=== PATIENT | female | born 1990 | race African-American/Black ===

== ENCOUNTER 2016-09-17 19:32 | Emergency (ER) | payer OTHER ==
[~2016-09-17] VITALS: Ht 160 cm; Wt 66.2 kg
[~2016-09-17 19:32] MED LIST: ALBUTEROL SULF8.5 GM IH; BACTRIM,SEPT1 TABLET PO; CALCIUM + VITA1 EACH PO; CIPRO500 MG PO; DOXYCYCLINE HY100 M1 PO; FLAGYL500 MG PO; LEVAQUIN500 MG PO; MACROBID100 MG PO; MOTRIN IB200 MG PO; NAPROSYN500 MG PO; NITROFURANTOIN100 MG PO; NORCO 7.5/321 TABLET PO; PHENERGAN1.25 MG/ML PO; PHENERGAN25 MG PR; POTASSIUM CHLO20 ME2 PO; PREDNISONE20 MG PO; PROMETHAZINE HC25 M1 PO; TESSALON PERLE100 MG PO; TRAMADOL HCL50 MG; ULTRACET1 TABLET PO; ZITHROMAX250 MG PO; ZOFRAN ODT4 MG PO; ZOFRAN4 MG PO
[2016-09-17 19:54] LABS: ADD MIUA? YES; BILIRUBIN NEGATIVE; BLOOD NEGATIVE; COLOR AMBER ((YELLOW)); GLUCOSE (STRIP) NEGATIVE; KETONES 80; LEUKOCYTES LARGE; NITRITE NEGATIVE; PROTEIN (STRIP) 100; SPECIFIC GRAVITY 1.024 (1.000-1.030)
[2016-09-17 20:08] LABS: BACTERIA RARE /HPF; CALCIUM OXALATE CRYSTALS 1+ /HPF; EPITHELIAL CELLS 3+ /HPF; MUCUS 4+ /LPF; RED BLOOD CELLS 0-5 /HPF (0-5); UCUL ADDED? NO; UNCLASSIFIED CASTS 0-5 /LPF; WHITE BLOOD CELLS 40-50 /HPF (0-5)
[2016-09-17 20:20] LABS: CHLORIDE 104 mEq/L (99-109); POTASSIUM 4.3 mEq/L (3.7-5.4); SODIUM 140 mEq/L (136-147)
[2016-09-17 20:24] LABS: TOTAL BILIRUBIN 0.3 mg/dL (0.0-1.0)
[2016-09-17 20:33] LABS: QUANTITATIVE HCG < 4.0 MIU/ML
[2016-09-17 21:34] LABS: SAMPLE HEMOLYSIS CHECK 0; SAMPLE ICTERIC CHECK 0; SAMPLE LIPEMIA CHECK 0
[2016-09-17 21:40] LABS: ALKALINE PHOSPHATASE 71 IU/L (3-129); GFR ESTIMATE (CALCULATED) > 59 mL/min/; GLUCOSE 98 mg/dL (70-99); LIPASE 9 U/L (1.0-51.0); UREA NITROGEN (BUN) 7 mg/dL (9-23)
[2016-09-17 23:10] LABS: HEMATOCRIT 43.7 % (36.0-46.0); MCH 30.4 PG (29.0-34.0); MCHC 33.2 G/DL (30.0-36.0); MCV 91.6 FL (83-99); MEAN PLAT.VOLUME 11.6 uM^3 (9.5-12.4); PLATELET COUNT 402 K/uL (156-360); RBC DIS.WIDTH-CV 11.6 % (11.8-14.6); RBC DIS.WIDTH-SD 39.3 % (39-53); RED BLOOD COUNT 4.77 M/uL (3.80-5.20); WHITE BLOOD COUNT 13.5 K/uL (4.1-10.2)
[2016-09-18] MEDS ORDERED: PERCOCET 5/31 TABLET PO (00:09)
[2016-09-18] MEDS ORDERED: FLAGYL500 MG PO (00:09)
[2016-09-18] MEDS ORDERED: CIPRO500 MG PO (00:09)
[2016-09-18 00:34] VITALS: BP 132/83
== END 2016-09-18 00:35 | disposition home or self-care (01) ==
LOC: EME 19:32
DX: K57.32 Diverticulitis of large intestine without perforation or abscess without bleeding (principal); F31.9 Bipolar disorder, unspecified; F17.200 Nicotine dependence, unspecified, uncomplicated
CPT/HCPCS: 74177; 80053; 81003; 83690; 84702; 85027; 99281; 99285; J1885; J2405; J3010; J7030

== ENCOUNTER 2016-10-09 00:43 | Emergency (ER) | payer OTHER ==
[~2016-10-09] VITALS: Ht 162.6 cm; Wt 65.3 kg
[~2016-10-09 00:43] MED LIST changes: +PERCOCET 5/31 TABLET PO
[2016-10-09 01:56] LABS: ADD MIUA? YES; BILIRUBIN NEGATIVE; BLOOD MODERATE; COLOR YELLOW ((YELLOW)); GLUCOSE (STRIP) NEGATIVE; KETONES 5; LEUKOCYTES MODERATE; NITRITE NEGATIVE; PROTEIN (STRIP) NEGATIVE; SPECIFIC GRAVITY 1.008 (1.000-1.030); UROBILINOGEN 0.2 MG/DL (0.2-1.0)
[2016-10-09 02:05] LABS: HEMATOCRIT 43.8 % (36.0-46.0); MCH 30.1 PG (29.0-34.0); MCHC 32.9 G/DL (30.0-36.0); MCV 91.4 FL (83-99); MEAN PLAT.VOLUME 10.9 uM^3 (9.5-12.4); PLATELET COUNT 366 K/uL (156-360); RBC DIS.WIDTH-CV 11.9 % (11.8-14.6); RBC DIS.WIDTH-SD 39.8 % (39-53); RED BLOOD COUNT 4.79 M/uL (3.80-5.20); WHITE BLOOD COUNT 10.9 K/uL (4.1-10.2)
[2016-10-09 02:06] LABS: BACTERIA RARE /HPF; EPITHELIAL CELLS 1+ /HPF; MUCUS TRACE /LPF; RED BLOOD CELLS 0-5 /HPF (0-5); UCUL ADDED? YES
[2016-10-09 02:15] LABS: CHLORIDE 102 mEq/L (99-109); POTASSIUM 3.4 mEq/L (3.7-5.4); SODIUM 139 mEq/L (136-147)
[2016-10-09 02:17] LABS: GLUCOSE 94 mg/dL (70-99)
[2016-10-09 02:18] LABS: ANION GAP 10 MEQ/L (2-14)
[2016-10-09 02:19] LABS: TOTAL BILIRUBIN 0.4 mg/dL (0.0-1.0)
[2016-10-09 02:20] LABS: ALKALINE PHOSPHATASE 73 IU/L (3-129)
[2016-10-09 02:21] LABS: GFR ESTIMATE (CALCULATED) > 59 mL/min/
[2016-10-09 02:22] LABS: UREA NITROGEN (BUN) 6 mg/dL (9-23)
[2016-10-09 02:24] LABS: LIPASE 13 U/L (1.0-51.0)
[2016-10-09 02:32] LABS: QUANTITATIVE HCG < 4.0 MIU/ML
[2016-10-09] MEDS ORDERED: AUGMENTIN875 MG PO (06:11)
[2016-10-09] MEDS ORDERED: ZOFRAN4 MG PO (06:11)
[2016-10-09 06:44] VITALS: BP 108/72
== END 2016-10-09 06:44 | disposition home or self-care (01) ==
LOC: EME 00:43
DX: R10.9 Unspecified abdominal pain (principal); R11.2 Nausea with vomiting, unspecified; R19.7 Diarrhea, unspecified; F17.200 Nicotine dependence, unspecified, uncomplicated
CPT/HCPCS: 80053; 81003; 83690; 84702; 85027; 87086; J2405; J3010; J7030

== ENCOUNTER 2017-04-05 11:41 | Emergency (ER) | payer OTHER ==
[~2017-04-05] VITALS: Ht 162.6 cm; Wt 73.1 kg
[~2017-04-05 11:41] MED LIST changes: +AUGMENTIN875 MG PO
[2017-04-05 12:34] LABS: HEMATOCRIT 43.4 % (36.0-46.0); HEMOGLOBIN 14.8 G/DL (11.9-15.5); MCH 30.8 PG (29.0-34.0); MCHC 34.1 G/DL (30.0-36.0); MCV 90.2 FL (83-99); PLATELET COUNT 321 K/uL (156-360); RBC DIS.WIDTH-CV 12.3 % (11.8-14.6); RBC DIS.WIDTH-SD 40.5 % (39-53); RED BLOOD COUNT 4.81 M/uL (3.80-5.20); WHITE BLOOD COUNT 11.9 K/uL (4.1-10.2)
[2017-04-05 12:44] LABS: CHLORIDE 103 mEq/L (99-109); POTASSIUM 3.5 mEq/L (3.7-5.4); SODIUM 138 mEq/L (136-147)
[2017-04-05 12:46] LABS: GLUCOSE 87 mg/dL (70-99)
[2017-04-05 12:50] LABS: CREATININE 0.8 mg/dL (0.6-1.3); GFR ESTIMATE (CALCULATED) > 59 mL/min/; UREA NITROGEN (BUN) 7 mg/dL (9-23)
[2017-04-05 12:56] LABS: TROP-I INTERPRETATION NEGATIVE; TROPONIN-I < 0.01 ng/mL (0.0-0.30)
[2017-04-05 14:35] LABS: D-DIMER ELISA < 150.00 ng/mLDDU (<230)
[2017-04-05 16:34] LABS: TROP-I INTERPRETATION NEGATIVE; TROPONIN-I 0.03 ng/mL (0.0-0.30)
[2017-04-05 17:21] LABS: ALBUMIN 4.3 g/dL (3.2-4.8)
[2017-04-05 17:24] LABS: TOTAL PROTEIN 7.5 g/dL (6.4-8.3)
[2017-04-05 17:26] LABS: TOTAL BILIRUBIN 0.5 mg/dL (0.0-1.0)
[2017-04-05 17:27] LABS: ALKALINE PHOSPHATASE 76 IU/L (3-129)
[2017-04-05 17:29] LABS: AST (GOT) 15 IU/L (2-34); DIRECT BILIRUBIN 0.3 mg/dL (0.0-0.3)
[2017-04-05 17:30] LABS: ALT (GPT) 15 IU/L (3-49)
[2017-04-05 17:41] LABS: APPEARANCE SL.HAZY ((CLEAR)); BILIRUBIN NEGATIVE; BLOOD NEGATIVE; COLOR YELLOW ((YELLOW)); GLUCOSE (STRIP) NEGATIVE; KETONES NEGATIVE; LEUKOCYTES TRACE; NITRITE NEGATIVE; PROTEIN (STRIP) NEGATIVE; SPECIFIC GRAVITY 1.006 (1.000-1.030); UROBILINOGEN 0.2 MG/DL (0.2-1.0)
[2017-04-05 17:46] LABS: BACTERIA NONE SEEN /HPF; EPITHELIAL CELLS 2+ /HPF; MUCUS TRACE /LPF; RED BLOOD CELLS 0-5 /HPF (0-5); UCUL ADDED? NO; WHITE BLOOD CELLS 0-5 /HPF (0-5)
[2017-04-05 18:42] VITALS: BP 118/63
== END 2017-04-05 18:42 | disposition home or self-care (01) ==
LOC: EME 11:41
PROVIDERS: Physician Assistant Medical
DX: B34.9 Viral infection, unspecified (principal); F32.9 Major depressive disorder, single episode, unspecified; F41.9 Anxiety disorder, unspecified; Z88.5 Allergy status to narcotic agent; Z88.1 Allergy status to other antibiotic agents; F17.200 Nicotine dependence, unspecified, uncomplicated
CPT/HCPCS: 71046; 80048; 80076; 81003; 84484; 85027; 85379; 87502; 93005; 94640; 99281; 99284

== ENCOUNTER 2017-05-29 02:42 | Emergency (ER) | payer OTHER ==
[~2017-05-29] VITALS: Ht 162.6 cm; Wt 79.8 kg
[2017-05-29 04:09] LABS: APPEARANCE CLEAR ((CLEAR)); BILIRUBIN NEGATIVE; BLOOD NEGATIVE; COLOR YELLOW ((YELLOW)); GLUCOSE (STRIP) NEGATIVE; KETONES NEGATIVE; LEUKOCYTES NEGATIVE; NITRITE NEGATIVE; PROTEIN (STRIP) NEGATIVE; SPECIFIC GRAVITY 1.014 (1.000-1.030); UCUL ADDED? NO; UROBILINOGEN 0.2 MG/DL (0.2-1.0)
[2017-05-29] MEDS ORDERED: DOUBLE ANTIBI28.4 GM TP (04:16)
[2017-05-29 04:33] VITALS: BP 128/82
== END 2017-05-29 04:34 | disposition home or self-care (01) ==
LOC: EME 02:42
PROVIDERS: Emergency Medicine
DX: L73.9 Follicular disorder, unspecified (principal); N76.0 Acute vaginitis; F32.9 Major depressive disorder, single episode, unspecified; F41.9 Anxiety disorder, unspecified; F17.200 Nicotine dependence, unspecified, uncomplicated; Z88.5 Allergy status to narcotic agent; Z88.1 Allergy status to other antibiotic agents
CPT/HCPCS: 81003; 87254; 99281; 99284

== ENCOUNTER 2017-06-05 23:41 | Emergency (ER) | payer OTHER ==
[~2017-06-05] VITALS: Ht 162.6 cm; Wt 80.0 kg
[~2017-06-05 23:41] MED LIST changes: +DOUBLE ANTIBI28.4 GM TP
[2017-06-06 01:13] VITALS: BP 122/84
== END 2017-06-06 01:15 | disposition left against medical advice (07) ==
LOC: EME 23:41
DX: N89.8 Other specified noninflammatory disorders of vagina (principal); Z86.19 Personal history of other infectious and parasitic diseases; F31.9 Bipolar disorder, unspecified; F41.9 Anxiety disorder, unspecified; F32.9 Major depressive disorder, single episode, unspecified; F17.200 Nicotine dependence, unspecified, uncomplicated; Z88.5 Allergy status to narcotic agent; Z88.1 Allergy status to other antibiotic agents; Z88.8 Allergy status to other drugs, medicaments and biological substances
CPT/HCPCS: 87210; 99281; 99284

== ENCOUNTER 2017-06-30 10:11 | Inpatient (IN) | payer OTHER ==
[~2017-06-30] VITALS: Ht 162.6 cm; Wt 86.3 kg
[2017-06-30 10:39] LABS: BASOPHIL (%) 0.4 % (0-1); BASOPHIL COUNT 0.1 K/uL (0-0.1); EOSINOPHIL (%) 0.8 % (0-5); EOSINOPHIL COUNT 0.2 K/uL (0-0.3); HEMATOCRIT 41.1 % (36.0-46.0); HEMOGLOBIN 13.7 G/DL (11.9-15.5); IMMATURE GRANULOCYTE (%) 1.6 % (0.0-0.7); LYMPHOCYTE (%) 15.1 % (15-42); LYMPHOCYTE COUNT 4.2 K/uL (1.0-2.8); MCH 31.4 PG (29.0-34.0); MCHC 33.3 G/DL (30.0-36.0); MCV 94.3 FL (83-99); MONOCYTE (%) 5.9 % (3-12); MONOCYTE COUNT 1.7 K/uL (0-0.8); NEUTROPHIL (%) 76.2 % (45-76); NEUTROPHIL COUNT 21.4 K/uL (1.8-6.4); PLATELET COUNT 381 K/uL (156-360); RBC DIS.WIDTH-CV 11.9 % (11.8-14.6); RBC DIS.WIDTH-SD 41.7 % (39-53); RED BLOOD COUNT 4.36 M/uL (3.80-5.20); WHITE BLOOD COUNT 28.1 K/uL (4.1-10.2)
[2017-06-30 10:48] LABS: AMYLASE 34 IU/L (1-118); CHLORIDE 107 mEq/L (99-109); POTASSIUM 3.9 mEq/L (3.7-5.4); SODIUM 140 mEq/L (136-147)
[2017-06-30 10:49] LABS: GLUCOSE 204 mg/dL (70-99)
[2017-06-30 10:53] LABS: CREATININE 0.9 mg/dL (0.6-1.3); GFR ESTIMATE (CALCULATED) > 59 mL/min/; SERUM ETHYL ALCOHOL < 10 mg/dL
[2017-06-30 10:54] LABS: UREA NITROGEN (BUN) 9 mg/dL (9-23)
[2017-06-30 10:56] LABS: LIPASE 12 U/L (1.0-51.0)
[2017-06-30 11:02] LABS: QUANTITATIVE HCG < 4.0 MIU/ML
[2017-06-30 11:27] LABS: APPEARANCE CLEAR ((CLEAR)); BILIRUBIN NEGATIVE; BLOOD SMALL; COLOR YELLOW ((YELLOW)); GLUCOSE (STRIP) NEGATIVE; KETONES NEGATIVE; LEUKOCYTES NEGATIVE; NITRITE NEGATIVE; PROTEIN (STRIP) NEGATIVE; SPECIFIC GRAVITY 1.012 (1.000-1.030); UROBILINOGEN 0.2 MG/DL (0.2-1.0)
[2017-06-30 11:37] LABS: BACTERIA RARE /HPF; CALCIUM OXALATE CRYSTALS 1+ /HPF; EPITHELIAL CELLS RARE /HPF; MUCUS 1+ /LPF; RED BLOOD CELLS 0-5 /HPF (0-5); UCUL ADDED? NO; WHITE BLOOD CELLS 0-5 /HPF (0-5)
[2017-06-30 11:38] LABS: AMPHETAMINE NEGATIVE (500 ng/mL); BARBITURATES NEGATIVE (200 ng/mL); BENZODIAZEPINES NEGATIVE (150 ng/mL); BUPRENORPHINE NEGATIVE (10 ng/mL); COCAINE PRESUMPTIVE POSITIVE (150 ng/mL); METHADONE NEGATIVE (200 ng/mL); METHAMPHETAMINE NEGATIVE (500 ng/mL); OPIATES (MORPHINE) PRESUMPTIVE POSITIVE (100 ng/mL); OXYCODONE NEGATIVE (100 ng/mL); PHENCYCLIDINE PRESUMPTIVE POSITIVE (25 ng/mL); PROPOXYPHENE NEGATIVE (300 ng/mL); THC CANNABINOIDS PRESUMPTIVE POSITIVE (50 ng/mL); TRICYCLIC ANTIDEPRESSANTS NEGATIVE (300 ng/mL)
[2017-06-30 16:57] LABS: HEMATOCRIT 40.6 % (36.0-46.0); HEMOGLOBIN 13.3 G/DL (11.9-15.5); MCV 94.9 FL (83-99)
[2017-06-30 17:28] LABS: CHLORIDE 110 MEQ/L (99-109); CREATININE 0.7 MG/DL (0.6-1.3); GFR ESTIMATE (CALCULATED) > 59 mL/min/; GLUCOSE 156 mg/dL (70-99); PHOSPHORUS 3.1 mg/dL (2.5-4.9); POTASSIUM 4.1 MEQ/L (3.7-5.4); SODIUM 137 MEQ/L (136-147); UREA NITROGEN (BUN) 8 mg/dL (9-23)
[2017-06-30 21:00] VITALS: BP 127/78
[2017-06-30 22:00] VITALS: BP 127/79
[2017-06-30 23:00] VITALS: BP 124/76
[2017-07-01] VITALS (17 sets, daily range): BP systolic 106–159; BP diastolic 69–102
[2017-07-01 06:01] LABS: CHLORIDE 106 MEQ/L (99-109); CREATININE 0.6 MG/DL (0.6-1.3); GFR ESTIMATE (CALCULATED) > 59 mL/min/; GLUCOSE 126 mg/dL (70-99); PHOSPHORUS 2.8 mg/dL (2.5-4.9); POTASSIUM 3.6 MEQ/L (3.7-5.4); SODIUM 138 MEQ/L (136-147); UREA NITROGEN (BUN) 7 mg/dL (9-23)
[2017-07-01 06:49] LABS: HEMATOCRIT 36.9 % (36.0-46.0); HEMOGLOBIN 12.6 G/DL (11.9-15.5); MCHC 34.1 G/DL (30.0-36.0); RBC DIS.WIDTH-CV 13.1 % (11.8-14.6); RBC DIS.WIDTH-SD 43.2 % (39-53); RED BLOOD COUNT 4.07 M/uL (3.80-5.20); WHITE BLOOD COUNT 20.7 K/uL (4.1-10.2)
[2017-07-01 06:51] LABS: MCV 90.7 FL (83-99); PLATELET COUNT 245 K/uL (156-360)
[2017-07-02] VITALS (7 sets, daily range): BP systolic 128–159; BP diastolic 68–89
[2017-07-02 05:56] LABS: HEMATOCRIT 32.7 % (36.0-46.0); HEMOGLOBIN 11.1 G/DL (11.9-15.5); MCH 30.3 PG (29.0-34.0); MCHC 33.9 G/DL (30.0-36.0); MCV 89.3 FL (83-99); PLATELET COUNT 212 K/uL (156-360); RBC DIS.WIDTH-CV 12.6 % (11.8-14.6); RBC DIS.WIDTH-SD 41.4 % (39-53); RED BLOOD COUNT 3.66 M/uL (3.80-5.20)
[2017-07-02 06:11] LABS: CHLORIDE 105 MEQ/L (99-109); CREATININE 0.6 MG/DL (0.6-1.3); GFR ESTIMATE (CALCULATED) > 59 mL/min/; GLUCOSE 125 mg/dL (70-99); POTASSIUM 3.5 MEQ/L (3.7-5.4); SODIUM 137 MEQ/L (136-147); UREA NITROGEN (BUN) 5 mg/dL (9-23)
[2017-07-03 03:19] VITALS: BP 138/66
[2017-07-03 05:24] LABS: HEMATOCRIT 30.8 % (36.0-46.0); HEMOGLOBIN 10.4 G/DL (11.9-15.5); MCH 30.8 PG (29.0-34.0); MCHC 33.8 G/DL (30.0-36.0); MCV 91.1 FL (83-99); PLATELET COUNT 220 K/uL (156-360); RBC DIS.WIDTH-CV 12.5 % (11.8-14.6); RBC DIS.WIDTH-SD 41.3 % (39-53); RED BLOOD COUNT 3.38 M/uL (3.80-5.20); WHITE BLOOD COUNT 13.1 K/uL (4.1-10.2)
[2017-07-03 05:51] LABS: CHLORIDE 106 MEQ/L (99-109); CREATININE 0.6 MG/DL (0.6-1.3); GFR ESTIMATE (CALCULATED) > 59 mL/min/; GLUCOSE 103 mg/dL (70-99); POTASSIUM 3.4 MEQ/L (3.7-5.4); SODIUM 138 MEQ/L (136-147); UREA NITROGEN (BUN) 6 mg/dL (9-23)
[2017-07-03 08:17] VITALS: BP 164/77
[2017-07-03 12:18] VITALS: BP 176/83
[2017-07-03 16:23] VITALS: BP 155/85
[2017-07-03 18:55] VITALS: BP 161/80
[2017-07-03 23:30] VITALS: BP 174/84
[2017-07-04 03:55] VITALS: BP 134/82
[2017-07-04 06:35] LABS: HEMATOCRIT 32.4 % (36.0-46.0); HEMOGLOBIN 10.7 G/DL (11.9-15.5); MCH 29.9 PG (29.0-34.0); MCV 90.5 FL (83-99); NRBC (%) 0.2 /100 WBC (0-0); RBC DIS.WIDTH-CV 12.1 % (11.8-14.6); RBC DIS.WIDTH-SD 40.4 % (39-53); RED BLOOD COUNT 3.58 M/uL (3.80-5.20); WHITE BLOOD COUNT 11.2 K/uL (4.1-10.2)
[2017-07-04 06:44] LABS: PLATELET COUNT 298 K/uL (156-360)
[2017-07-04 06:57] LABS: CHLORIDE 105 MEQ/L (99-109); CREATININE 0.5 MG/DL (0.6-1.3); GFR ESTIMATE (CALCULATED) > 59 mL/min/; GLUCOSE 121 mg/dL (70-99); POTASSIUM 3.9 MEQ/L (3.7-5.4); SODIUM 136 MEQ/L (136-147); UREA NITROGEN (BUN) 6 mg/dL (9-23)
[2017-07-04 07:44] VITALS: BP 147/82
[2017-07-04 10:59] VITALS: BP 140/82
[2017-07-04 15:57] VITALS: BP 167/81
[2017-07-04 19:40] VITALS: BP 139/72
[2017-07-04 23:38] VITALS: BP 130/72
[2017-07-05 03:44] VITALS: BP 141/76
[2017-07-05 06:04] LABS: HEMATOCRIT 35.1 % (36.0-46.0); HEMOGLOBIN 11.8 G/DL (11.9-15.5); MCH 29.9 PG (29.0-34.0); MCHC 33.6 G/DL (30.0-36.0); MCV 89.1 FL (83-99); PLATELET COUNT 360 K/uL (156-360); RBC DIS.WIDTH-CV 11.9 % (11.8-14.6); RBC DIS.WIDTH-SD 38.5 % (39-53); RED BLOOD COUNT 3.94 M/uL (3.80-5.20); WHITE BLOOD COUNT 15.4 K/uL (4.1-10.2)
[2017-07-05 06:23] LABS: CHLORIDE 107 MEQ/L (99-109); CREATININE 0.6 MG/DL (0.6-1.3); GFR ESTIMATE (CALCULATED) > 59 mL/min/; GLUCOSE 109 mg/dL (70-99); POTASSIUM 3.8 MEQ/L (3.7-5.4); SODIUM 139 MEQ/L (136-147); UREA NITROGEN (BUN) 9 mg/dL (9-23)
[2017-07-05 08:06] VITALS: BP 173/88
[2017-07-05 11:30] VITALS: BP 137/70
[2017-07-05 19:30] VITALS: BP 140/73
[2017-07-05 23:32] VITALS: BP 120/59
[2017-07-06 04:20] VITALS: BP 123/58
[2017-07-06 06:24] LABS: BASOPHIL (%) 0.3 % (0-1); BASOPHIL COUNT 0.1 K/uL (0-0.1); EOSINOPHIL (%) 1.9 % (0-5); EOSINOPHIL COUNT 0.3 K/uL (0-0.3); HEMATOCRIT 33.8 % (36.0-46.0); HEMOGLOBIN 11.4 G/DL (11.9-15.5); IMMATURE GRANULOCYTE (%) 1.2 % (0.0-0.7); LYMPHOCYTE (%) 7.3 % (15-42); LYMPHOCYTE COUNT 1.3 K/uL (1.0-2.8); MCH 30.3 PG (29.0-34.0); MCHC 33.7 G/DL (30.0-36.0); MCV 89.9 FL (83-99); MONOCYTE (%) 8.7 % (3-12); MONOCYTE COUNT 1.5 K/uL (0-0.8); NEUTROPHIL (%) 80.6 % (45-76); NEUTROPHIL COUNT 13.9 K/uL (1.8-6.4); PLATELET COUNT 390 K/uL (156-360); RBC DIS.WIDTH-CV 12.1 % (11.8-14.6); RBC DIS.WIDTH-SD 38.9 % (39-53); RED BLOOD COUNT 3.76 M/uL (3.80-5.20); WHITE BLOOD COUNT 17.3 K/uL (4.1-10.2)
[2017-07-06 06:43] LABS: CHLORIDE 106 MEQ/L (99-109); CREATININE 0.7 MG/DL (0.6-1.3); GFR ESTIMATE (CALCULATED) > 59 mL/min/; GLUCOSE 90 mg/dL (70-99); POTASSIUM 3.8 MEQ/L (3.7-5.4); SODIUM 141 MEQ/L (136-147); UREA NITROGEN (BUN) 11 mg/dL (9-23)
[2017-07-06 07:51] VITALS: BP 130/61
[2017-07-06 11:23] VITALS: BP 121/57
[2017-07-06 14:48] LABS: C DIFF TOXIN NEGATIVE (NEGATIVE)
[2017-07-06 15:43] VITALS: BP 129/67
[2017-07-06 19:51] VITALS: BP 129/64
[2017-07-06 23:40] VITALS: BP 110/61
[2017-07-07] VITALS (7 sets, daily range): BP systolic 116–140; BP diastolic 61–76
[2017-07-07 06:56] LABS: HEMATOCRIT 32.2 % (36.0-46.0); HEMOGLOBIN 10.6 G/DL (11.9-15.5); MCH 29.9 PG (29.0-34.0); MCHC 32.9 G/DL (30.0-36.0); MCV 90.7 FL (83-99); PLATELET COUNT 407 K/uL (156-360); RBC DIS.WIDTH-CV 12.2 % (11.8-14.6); RBC DIS.WIDTH-SD 40.7 % (39-53); RED BLOOD COUNT 3.55 M/uL (3.80-5.20); WHITE BLOOD COUNT 15.3 K/uL (4.1-10.2)
[2017-07-07 07:21] LABS: CHLORIDE 105 MEQ/L (99-109); CREATININE 0.7 MG/DL (0.6-1.3); GFR ESTIMATE (CALCULATED) > 59 mL/min/; GLUCOSE 92 mg/dL (70-99); POTASSIUM 3.8 MEQ/L (3.7-5.4); SODIUM 141 MEQ/L (136-147); UREA NITROGEN (BUN) 11 mg/dL (9-23)
[2017-07-08 00:06] LABS: APPEARANCE CLEAR ((CLEAR)); BILIRUBIN NEGATIVE; BLOOD SMALL; COLOR YELLOW ((YELLOW)); GLUCOSE (STRIP) NEGATIVE; KETONES NEGATIVE; LEUKOCYTES NEGATIVE; NITRITE NEGATIVE; PROTEIN (STRIP) NEGATIVE; SPECIFIC GRAVITY 1.014 (1.000-1.030); UROBILINOGEN 0.2 MG/DL (0.2-1.0)
[2017-07-08 00:08] LABS: BACTERIA RARE /HPF; EPITHELIAL CELLS RARE /HPF; MUCUS TRACE /LPF; RED BLOOD CELLS 0-5 /HPF (0-5); UCUL ADDED? NO; WHITE BLOOD CELLS 0-5 /HPF (0-5)
[2017-07-08 04:27] VITALS: BP 102/54
[2017-07-08 06:31] LABS: BASOPHIL (%) 0.4 % (0-1); BASOPHIL COUNT 0.1 K/uL (0-0.1); EOSINOPHIL (%) 2.6 % (0-5); EOSINOPHIL COUNT 0.5 K/uL (0-0.3); HEMATOCRIT 30.4 % (36.0-46.0); HEMOGLOBIN 10.3 G/DL (11.9-15.5); LYMPHOCYTE (%) 6.2 % (15-42); LYMPHOCYTE COUNT 1.2 K/uL (1.0-2.8); MCHC 33.9 G/DL (30.0-36.0); MCV 91.6 FL (83-99); MONOCYTE (%) 6.8 % (3-12); MONOCYTE COUNT 1.3 K/uL (0-0.8); PLATELET COUNT 454 K/uL (156-360); RBC DIS.WIDTH-CV 12.4 % (11.8-14.6); RBC DIS.WIDTH-SD 41.4 % (39-53); RED BLOOD COUNT 3.32 M/uL (3.80-5.20); WHITE BLOOD COUNT 19.3 K/uL (4.1-10.2)
[2017-07-08 06:56] LABS: CHLORIDE 106 MEQ/L (99-109); CREATININE 0.8 MG/DL (0.6-1.3); GFR ESTIMATE (CALCULATED) > 59 mL/min/; GLUCOSE 94 mg/dL (70-99); POTASSIUM 3.8 MEQ/L (3.7-5.4); SODIUM 141 MEQ/L (136-147); UREA NITROGEN (BUN) 13 mg/dL (9-23)
[2017-07-08 07:30] VITALS: BP 124/58
[2017-07-08 11:14] VITALS: BP 113/55
[2017-07-08] MEDS ORDERED: OXYCODONE HCL5 MG PO (12:51)
[2017-07-08] MEDS ORDERED: LEVOFLOXACIN750 MG PO (12:51)
[2017-07-08] MEDS ORDERED: AUGMENTIN875 MG PO (14:32)
== END 2017-07-08 14:39 | disposition home or self-care (01) | DRG 957 ==
LOC: TRA → SDC 12:26 → 4WEST 16:06 → ENRESERV 16:06 → 2SOUTH 16:06 → 3EAST 16:06 → ENRESERV 16:37 → 4WEST 21:20 → ENRESERV 07-01 20:08 → 4EAST 07-02 00:11 → ENRESERV 07-03 14:11 → 3EAST 07-03 15:50
PROVIDERS: Emergency Medicine; Physician Assistant; Surgery
PROC: 30233N1 Transfusion of Nonautologous Red Blood Cells into Peripheral Vein, Percutaneous Approach (ICD-10-PCS; principal; 2017-06-30)
PROC: 0WCH0ZZ Extirpation of Matter from Retroperitoneum, Open Approach (ICD-10-PCS; 2017-06-30)
PROC: 0UT00ZZ Resection of Right Ovary, Open Approach (ICD-10-PCS; 2017-06-30)
PROC: 0DJD8ZZ Inspection of Lower Intestinal Tract, Via Natural or Artificial Opening Endoscopic (ICD-10-PCS; 2017-06-30)
PROC: BT1DZZZ Fluoroscopy of Right Kidney, Ureter and Bladder (ICD-10-PCS; 2017-06-30)
PROC: 0JCH0ZZ Extirpation of Matter from Left Lower Arm Subcutaneous Tissue and Fascia, Open Approach (ICD-10-PCS; 2017-06-30)
PROC: 0JCM0ZZ Extirpation of Matter from Left Upper Leg Subcutaneous Tissue and Fascia, Open Approach (ICD-10-PCS; 2017-06-30)
PROC: 0UQ10ZZ Repair Left Ovary, Open Approach (ICD-10-PCS; 2017-06-30)
PROC: 0PSQ04Z Reposition Left Metacarpal with Internal Fixation Device, Open Approach (ICD-10-PCS; 2017-06-30)
PROC: 0DTJ0ZZ Resection of Appendix, Open Approach (ICD-10-PCS; 2017-06-30)
PROC: 0DQN0ZZ Repair Sigmoid Colon, Open Approach (ICD-10-PCS; 2017-06-30)
DX: S36.593A Other injury of sigmoid colon, initial encounter (principal); S36.898A Other injury of other intra-abdominal organs, initial encounter; S37.898A Other injury of other urinary and pelvic organ, initial encounter; S32.10XA Unspecified fracture of sacrum, initial encounter for closed fracture; S09.90XA Unspecified injury of head, initial encounter; J69.0 Pneumonitis due to inhalation of food and vomit; E87.6 Hypokalemia; S31.823A Puncture wound without foreign body of left buttock, initial encounter; S71.042A Puncture wound with foreign body, left hip, initial encounter; S62.321B Displaced fracture of shaft of second metacarpal bone, left hand, initial encounter for open fracture; S62.323B Displaced fracture of shaft of third metacarpal bone, left hand, initial encounter for open fracture; S37.4 Injury of ovary; N83.202 Unspecified ovarian cyst, left side; Y00.XXXA Assault by blunt object, initial encounter; X93.XXXA Assault by handgun discharge, initial encounter; R41.82 Altered mental status, unspecified; I10 Essential (primary) hypertension; F11.10 Opioid abuse, uncomplicated; F14.10 Cocaine abuse, uncomplicated; F12.10 Cannabis abuse, uncomplicated; F16.10 Hallucinogen abuse, uncomplicated; F19.10 Other psychoactive substance abuse, uncomplicated; F31.9 Bipolar disorder, unspecified; F17.200 Nicotine dependence, unspecified, uncomplicated; E66.9 Obesity, unspecified; Z68.34 Body mass index [BMI] 34.0-34.9, adult
CPT/HCPCS: 70450; 70498; 71045; 71275; 72125; 73130; 73706; 74174; 74420; 76000; 80048; 80048 91; 80202; 81003; 82150; 83690; 84100; 84702; 84999; 85014; 85018; 85025; 85027; 86850; 86900; 86901; 86920; 87070; 87205; 87449; 87493; 87641; 88300; 88304; 88305; 94002; 94010; 94640; 94640 76; 94760; 97530 GP; 99202; 99281; 99285; C1713; C1758; C1769; G0480; J0330; J0690; J1170; J1650; J2060; J2250; J2405; J2543; J3010; J3370; J7030; J7050; P9016; P9047; S0028; S0074